=== PATIENT | female | born 1980 | race Caucasian/White ===

== ENCOUNTER → 2024-01-19 | Outpatient (CLI) | payer BC ==
[~2024-01-19] MED LIST: LEVOTHYROXINE0.1 MG PO; PRENATAL PO; ZOFRAN4 M1 PO; [UNRECOGNIZED DRUG - OTHER] PO
== END ==
LOC: MAMMO 08:22
DX: Z12.31 Encounter for screening mammogram for malignant neoplasm of breast (principal); N64.89 Other specified disorders of breast